=== PATIENT | male | born 1985 | race Caucasian/White ===

== ENCOUNTER 2024-07-14 17:06 | Emergency (ER) | payer OTHER ==
--- NOTE | 2024-07-14 17:46 | RAD REPORT ---
EXAM DESCRIPTION: Eusebia Single View07/14/2024 5:27 pm CLINICAL HISTORY: Chest pain COMPARISON: none FINDINGS: The lungs appear clear of acute infiltrate. The heart is mildly enlarged IMPRESSION: No acute abnormalities displayed
[2024-07-14 17:54] LABS: Absolute Basophils 0.1 K/uL (0-0.5); Absolute Lymphocytes (CBC) 1.7 K/uL (0.7-4.9); Absolute Monocytes 0.4 K/uL (0.1-1.3); Absolute Neutrophil 2.6 K/uL (1.8-8.0); Basophils % 1.4 % (0-1.3); Eosinophils % 0.1 % (0-4.4); Hematocrit 55.6 % (39.6-49.0); Hemoglobin 18.6 g/dL (13.6-17.9); Lymphocytes % 35.1 % (15.3-44.8); MCH 31.5 pg (27.0-35.0); MCHC 33.4 g/dL (32.0-36.0); MCV 94.3 fL (80-100); Monocytes % 8.3 % (3.3-12.3); Neutrophils % 55.1 % (41.7-73.7); Platelets 328 thou/uL (152-406); Red Cell Distribution Width 18.7 % (12.1-15.2)
[2024-07-14 17:59] LABS: PT Prothrombin Time 10.7 SECONDS (9.4-12.5); PTT, Activated Partial Thromb 33.4 SECONDS (24.3-36.9); Protime INR 0.95
[2024-07-14 18:23] LABS: ALT/SGPT 81 U/L (16-61); AST/SGOT 98 U/L (15-37); Albumin 4.1 g/dL (3.4-5.0); Alkaline Phosphatase 58 U/L (45-117); Anion Gap 13.3 mEq/L (5.0-15.0); BUN Blood Urea Nitrogen 7 mg/dL (7-18); Bicarbonate 27 mEq/L (21-32); Bilirubin Direct 0.2 mg/dL (0-0.2); Bilirubin Indirect, Calculated 1.1 mg/dL (0.2-0.8); Bilirubin Total 1.3 mg/dL (0.2-1.0); Globulin 4.1 g/dL (2.3-3.5); Glomerular Filtration Rate 100 ml/min (=/>90); Glucose Level 123 mg/dL (74-106); Potassium 3.3 mEq/L (3.5-5.1); Protein, Total 8.2 g/dL (6.4-8.2); Sodium Level 136 mEq/L (136-145)
--- NOTE | 2024-07-14 18:26 | RAD REPORT ---
EXAM DESCRIPTION: CT - Head Brain Wo Cont - 07/14/2024 5:53 pm CLINICAL HISTORY: Alteration of awareness/confusion COMPARISON: None TECHNIQUE: Computed axial tomography of the head was obtained. IV contrast was not requested. All CT scans are performed using dose optimization technique as appropriate and may include automated exposure control or mA/KV adjustment according to patient size. FINDINGS: An intracranial bleed is not seen The ventricles are normal in caliber No extra-axial fluid collection is noted. No significant hypodensity within the brain noted Fluid within the sinuses/ mastoids is not seen. IMPRESSION: No acute intracranial abnormality is seen If patient's symptoms persist MRI of the brain would be recommended
[2024-07-14] MEDS ORDERED: FOLIC ACID 1 MG, MULTIVITAMINS INJ 10 ML, THIAMINE HCL 100 MG in NA CHLORIDE 0.9% 1,000 ML IV ONE (19:00)
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
== END 2024-07-14 20:00 | disposition home or self-care (01) ==
LOC: ER 17:06
DX: F10.229 Alcohol dependence with intoxication, unspecified (principal); Z72.0 Tobacco use
CPT/HCPCS: 96365; 85025; 80048; 36415; 85610; 80076; 85730; 84484; 70450; 71045; 99284; 96366; 80143; 80179; 82077; J3411; J7030